=== PATIENT | female | born 1945 | race Caucasian/White ===

== ENCOUNTER → 2021-06-04 | Outpatient (CLI) | payer OTHER ==
[~2021-06-04] MED LIST: FLOMAX0.4 MG PO; IBUPROFEN600 MG PO; PERCOCET 5/325 T1 EA PO; ZOFRAN ODT 4 MG4 MG PO
== END ==
LOC: KOH-I 15:40
DX: M54.41 Lumbago with sciatica, right side (principal); M47.816 Spondylosis without myelopathy or radiculopathy, lumbar region
CPT/HCPCS: 72100

== ENCOUNTER → 2022-08-25 | Outpatient (CLI) | payer OTHER | LOC: KOH-I 09:10 | DX: M25.512 Pain in left shoulder (principal) | CPT/HCPCS: 73030 ==